=== PATIENT | female | born 1980 | race Caucasian/White ===

== ENCOUNTER 2017-03-22 16:58 | Emergency (ER) | payer MEDICAID | END 2017-03-22 17:11 | disposition left against medical advice (07) | LOC: CED 16:58 | DX: Z53.21 Procedure and treatment not carried out due to patient leaving prior to being seen by health care provider (principal) ==

== ENCOUNTER 2018-09-03 19:57 | Emergency (ER) | payer MEDICAID ==
--- NOTE | 2018-09-03 20:29 | EDPHY ---
H & P Smoking Status: Current every day smoker Time Seen by Provider: 09/03/18 19:59 HPI/ROS: Chief complaint. Fall HPI. Patient is a 37-year-old female was [facility]. She was sitting on a stool. She fell backwards striking her head. Complains of bump on her head as well as neck and back pain. Did not lose consciousness. No chest pain or shortness of breath. No abdominal pain. No injury to arms or legs. ROS 10 systems were reviewed and negative with the exception of the elements mentioned in the history of present illness (Chico Melara) Past Medical/Surgical History: Mental health (Chico Melara) Social History: Single, daily smoker, no alcohol (Chico Melara) Physical Exam: General Appearance: Well-developed female mild distress vital signs are stable Eyes: Pupils equal and round no pallor or injection. ENT, hemotympanum or Gutierrez sign. No oral pharyngeal or dental trauma. Slight bump to the top of the head. Respiratory: There are no retractions, lungs are clear to auscultation. Cardiovascular: Regular rate and rhythm. Gastrointestinal: Abdomen is soft and nontender, no masses, bowel sounds normal. Neurological: Awake and alert, sensory and motor exams grossly normal. Skin: Warm and dry, no rashes. Musculoskeletal: Pain to mainly right side of her neck as well as mid thoracic spine. Some mild cervical tenderness. No obvious trauma Extremities symmetrical, full range of motion. Psychiatric: Patient is oriented X 3, there is no agitation. (Chico Melara) Constitutional: Initial Vital Signs Temperature (C) 36.7 C 09/03/18 20:00 Heart Rate 113 H 09/03/18 20:00 Respiratory Rate 20 09/03/18 20:00 Blood Pressure 105/82 H 09/03/18 20:00 O2 Sat (%) 97 09/03/18 20:00 O2 Delivery Mode Room Air Allergies/Adverse Reactions: cefaclor [From Ceclor] Allergy (Unknown, Verified 09/03/18 20:05) Unknown adhesive tape Allergy (Verified 09/03/18 20:05) venlafaxine [From Effexor] Allergy (Verified 09/03/18 20:05) Home Medications: Medication Instructions Recorded Fioricet (*) 03/10/16 Prozac 10 MG (*) 03/10/16 GABAPENTIN 03/23/16 Fluticasone Nasal [Flonase Nasal 2 sprays NASAL DAILY #1 mdi 07/04/16 [place] (RX)] Zaleplon [Sonata] 5 - 10 mg PO HS #20 capsule 07/04/16 Medical Decision Making - Diagnostics Imaging Results: Imaging Impressions Cervical Spine X-Ray 09/03/18 20:14 Impression: No acute fracture or subluxation of the cervical spine. Thoracic Spine X-Ray 09/03/18 20:14 Impression: Mild superior compression deformity of T9, age uncertain. Thoracic Spine X-Ray 09/03/18 21:18 Impression: Mild superior compression deformity of T9, age uncertain. Cervical spine x-ray interpreted by me is normal T-spine reviewed by me and discussed with Radiology shows a inferior cortical interruption of T3. Radiology think this is likely normal but we will repeat the x-ray (Chico Melara) ED Course/Re-evaluation: Patient remained stable. Patient and I discussed imaging study results, treatment plan including criteria for return importance of follow-up and further evaluation. She expresses understanding and agreement (Chico Melara) Differential Diagnosis: Fall with neck and back pain. At this point the thoracic spine is being repeated but likely is normal. (Chico Melara) Other Provider: Repeat T-spine x-ray reviewed with Dr. Vallejo at 10:08 p.m., possibly has T9 compression fracture less than 10%, remainder is normal. Warnings given including no lifting or bending. Results discussed with the patient at 10:12 p.m. She does not have any peripheral neurologic symptoms. She is warned she may have a acute small compression fracture her thoracic spine. Precautions discussed. Neurosurgical office follow-up. Stable for discharge. (Isai Mckeon) Departure - Departure Disposition: Home, Routine, Self-Care Clinical Impression: Thoracic sprain Acute cervical sprain Qualifiers: Encounter type: initial encounter Qualified Code(s): S13.9XXA - Sprain of joints and ligaments of unspecified parts of neck, initial encounter Condition: Good Instructions: Cervical Sprain (ED) Additional Instructions: Ice to sore areas next 24 hr. Tylenol 1000 mg every 6 hr, ibuprofen 600 mg every 6 hr for discomfort Return for worsening headache, confusion, vomiting. Possible very minimal T9 compression fracture in the thoracic spine. No lifting more than 5 lb, now bending or twisting. Recheck next week in the spine clinic doctor Jacklyn. Return immediately for worsening back pain or any weakness or numbness in arms or legs. Pt is medically cleared and OK to go back to [facility]. Referrals: Irwin Villasenor MD [Medical Doctor] - As per Instructions
[2018-09-03 22:26] VITALS: BP 99/84
== END 2018-09-03 22:24 | disposition home or self-care (01) ==
DX: S13.9XXA Sprain of joints and ligaments of unspecified parts of neck, initial encounter (principal); M43.8X4 Other specified deforming dorsopathies, thoracic region; W07.XXXA Fall from chair, initial encounter